=== PATIENT | female | born 1995 | race African-American/Black ===

== ENCOUNTER 2023-01-20 11:29 | Outpatient (REF) | payer OTHER, SELFPAY ==
[2023-01-20 13:23] LABS: MANUAL DIFF FLAG NO
[2023-01-20 13:42] LABS: Basophils Percent Auto 0.5 % (0-2); Eosinophils Absolute Auto 0.2 X10*3/uL (0.0-0.4); Eosinophils Percent Auto 2.9 % (0-4); Hematocrit 44.7 % (37.0-47.0); Hemoglobin 14.8 g/dl (12.0-16.0); Imm Gran Abs Auto 0.02 X10*3/uL (0.00-0.03); Imm Gran Pct Auto 0.3 % (0.0-0.4); Lymphocytes Absolute Auto 1.5 X10*3/uL (1.2-4.9); Lymphocytes Percent Auto 24.1 % (20-40); Mean Corpuscular HGB Conc 33.1 g/dl (31.0-35.0); Mean Corpuscular Volume 90.5 fL (80.0-98.0); Monocytes Absolute Auto 0.4 X10*3/uL (0.1-1.2); Monocytes Percent Auto 7.1 % (2-11); Neutrophils Percent Auto 65.1 % (45-73); Platelet Count 302 X10*3/uL (160-400); Red Blood Count 4.94 X10*6/uL (4.20-5.50); Red Cell Distribution Width 13.3 % (11.0-16.0); White Blood Count 6.2 X10*3/uL (4.8-10.8)
[2023-01-20 14:02] LABS: Estimated Average Glucose 97 mg/dL
[2023-01-20 14:17] LABS: Alanine Aminotransferase 13 U/L (0-31); Albumin Level 4.3 g/dL (3.5-5.0); Alkaline Phosphatase 62 U/L (39-117); Aspartate Amino Transferase 18 U/L (5-31); Bilirubin Direct 0.2 mg/dL (0.0-0.5); Bilirubin Total 0.7 mg/dL (0.0-1.0); Cholesterol 264 mg/dL (<200); HDL Cholesterol 68 mg/dL (>40); LDL Cholesterol Calculated 182 mg/dL (<100); Total Protein 7.5 g/dL (6.5-8.0); Triglycerides 74 mg/dL (<150)
[2023-01-24 13:37] LABS: Testosterone, Total 1377 ng/dL (2-45)
== END 2023-01-20 11:30 | disposition home or self-care (01) ==
LOC: HO.HHCL 11:29
PROVIDERS: Visit Provider Family Medicine
DX: F64.9 Gender identity disorder, unspecified (principal); Z20.2 Contact with and (suspected) exposure to infections with a predominantly sexual mode of transmission; E78.5 Hyperlipidemia, unspecified; Z13.1 Encounter for screening for diabetes mellitus
CPT/HCPCS: 36415; 80061; 80076; 83036; 84403; 85025

== ENCOUNTER 2023-07-03 10:20 | Outpatient (REF) | payer OTHER, SELFPAY ==
[2023-07-03 11:45] LABS: Hematocrit 44.4 % (37.0-47.0); Hemoglobin 14.9 g/dl (12.0-16.0); Mean Corpuscular HGB Conc 33.6 g/dl (31.0-35.0); Mean Corpuscular Hemoglobin 29.7 pg (27.0-33.0); Mean Corpuscular Volume 88.6 fL (80.0-98.0); Mean Platelet Volume 9.8 fL (9.4-12.3); Platelet Count 325 X10*3/uL (160-400); Red Blood Count 5.01 X10*6/uL (4.20-5.50); Red Cell Distribution Width 13.2 % (11.0-16.0); White Blood Count 6.1 X10*3/uL (4.8-10.8)
[2023-07-03 12:11] LABS: Alanine Aminotransferase 12 U/L (0-31); Albumin Level 4.3 g/dL (3.5-5.0); Alkaline Phosphatase 75 U/L (39-117); Aspartate Amino Transferase 16 U/L (5-31); Bilirubin Direct 0.2 mg/dL (0.0-0.5); Bilirubin Total 0.4 mg/dL (0.0-1.0); Cholesterol 205 mg/dL (<200); HDL Cholesterol 62 mg/dL (>40); LDL Cholesterol Calculated 135 mg/dL (<100); Total Protein 7.4 g/dL (6.5-8.0); Triglycerides 40 mg/dL (<150)
[2023-07-09 11:53] LABS: Testosterone, Total 746 ng/dL (2-45)
== END 2023-07-03 10:21 | disposition home or self-care (01) ==
LOC: HO.HHCL 10:20
PROVIDERS: Visit Provider Family Medicine
DX: F64.9 Gender identity disorder, unspecified (principal); E78.5 Hyperlipidemia, unspecified
CPT/HCPCS: 36415; 80061; 80076; 84403; 85027

== ENCOUNTER 2023-08-22 09:51 | Outpatient (REF) | payer OTHER, SELFPAY ==
[2023-08-28 13:58] LABS: Testosterone, Total 406 ng/dL (2-45)
== END 2023-08-22 09:52 | disposition home or self-care (01) ==
LOC: HO.HHCL 09:51
PROVIDERS: Visit Provider Family Medicine
DX: F64.9 Gender identity disorder, unspecified (principal)
CPT/HCPCS: 36415; 84403